=== PATIENT | male | born 1990 | race Caucasian/White ===

== ENCOUNTER 2018-11-01 16:53 | Emergency (ER) | payer MEDICAID ==
[~2018-11-01] VITALS: Ht 172.7 cm; Wt 81.7 kg
[2018-11-01] MEDS ORDERED: ZOFRAN4 MG PO (17:32)
[2018-11-01] MEDS ORDERED: NORCO 5-325 TA1 EACH PO (20:31)
[2018-11-01] MEDS ORDERED: CRUTCH1 EACH (20:32)
--- OUTSIDE RECORDS SUMMARY | 2018-11-01 21:36 | XMS ---
PreManage Notification: PANFILO BANUELOS [employer] Events No recent Security Events currently on file CRITERIA MET - [facility] - 2 Visits in 30 Days CARE PROVIDERS BRIAN CALDERON Nurse Practitioner: Family Current PHONE: [phone] Kristina ALCANTAR/Center: Federally Qualified 08/17/2018-[facility] ([facility]) CENTER - PHONE: [phone] [facility] Internal Medicine 08/17/2018-[facility] CHRISTINA PHONE: [phone] Navin Gustafson [employer] Travel Counselor/Human Resource Internship Current [facility] Team PHONE: [phone] [facility] Primary Care 08/17/2018-[facility] Delio CHRISTINA PHONE: [phone] [facility] Primary Care 08/17/2018-[facility] ORTIZ PHONE: [phone] ALMA QUINTERO Primary Care Current PHONE: Unknown BRIAN CALDERON Primary Care Current PHONE: Unknown [facility] Primary Care 08/14/2017-[facility] ORTIZ PHONE: [phone] L[facility] 03/10/2017-[facility] PHONE: [phone] [facility] Current PHONE: Unknown KING Dunia [facility] 02/19/2016-Current PHONE: Unknown Qian has no Care Guidelines for this patient. [facility] VISIT COUNT (12 MO.) 2 [facility] TOTAL 5 NOTE: Visits indicate total known visits. ED/UCC VISIT TRACKING (12 MO.) 11/01/2018 16:54 [place] TYPE: Emergency COMPLAINT: - ANKLE PAIN, INJ [facility]2018 [facility] [place] [facility] DIAGNOSES: - Epigastric pain - Hypokalemia - Tobacco use - Other disorders of phosphorus metabolism - Fatty (change of) liver, not elsewhere classified - Hypomagnesemia - Nausea with vomiting, unspecified - Vomiting (Severe) - Alcoholic gastritis without bleeding - Alcoholic gastritis with bleeding - Alcohol abuse, uncomplicated - Sore Throat - Nausea - Alcohol dependence with withdrawal, unspecified 07/31/2018 14:20 Jean Pierre Burkett [facility] [place] TYPE: Emergency DIAGNOSES: - ABD PAIN,VOMITING - Nausea with vomiting, unspecified - Personal history of other diseases of the digestive system - Epigastric pain 03/02/2018 21:06 [facility] [place] [facility] DIAGNOSES: - Alcoholic gastritis without bleeding - Alcohol dependence with withdrawal, uncomplicated - Abdominal Pain - Alcohol abuse, uncomplicated - Alcohol induced acute pancreatitis without necrosis or infection [facility]2018 [facility] DIAGNOSES: - Alcohol induced acute pancreatitis without necrosis or infection - Alcohol dependence with withdrawal, uncomplicated - abd pain, N/V INPATIENT VISIT TRACKING (12 MO.) 10/18/2018 11:02 [place] TYPE: Internal Medicine DIAGNOSES: - Fatty (change of) liver, not elsewhere classified - Nausea with vomiting, unspecified - Alcoholic gastritis without bleeding - Hypokalemia - Other disorders of phosphorus metabolism - Alcohol dependence with withdrawal, unspecified - Alcoholic gastritis with bleeding - Alcohol abuse, uncomplicated - Alcohol dependence with withdrawal, uncomplicated - Epigastric pain - Hypomagnesemia - Tobacco use - Alcohol induced acute pancreatitis without necrosis or infection 01/17/2018 18:57 Jean Pierre Alexandre [place] TYPE: Medical Surgical DIAGNOSES: - Alcohol induced acute pancreatitis without necrosis or infection - Alcohol dependence with withdrawal, uncomplicated [email or web address]
== END 2018-11-01 20:51 | disposition home or self-care (01) ==
LOC: ED 16:53
DX: S93.402A Sprain of unspecified ligament of left ankle, initial encounter (principal); F17.200 Nicotine dependence, unspecified, uncomplicated; X50.1XXA Overexertion from prolonged static or awkward postures, initial encounter
CPT/HCPCS: 73610; 99283